=== PATIENT | female | born 1990 | race Caucasian/White ===

== ENCOUNTER → 2018-09-22 | Outpatient (CLI) | payer OTHER, MEDICAID ==
[~2018-09-22] MED LIST: ONETAB3 PO; VICO5TA PO
[2018-09-22 18:12] LABS: FREE T4 1.01 NG/DL (0.76-1.46); THYROID STIMULATING HORMONE 1.22 uIU/ML (0.358-3.740)
[2018-09-22 18:15] LABS: LUTEINIZING HORMONE 6.2 mIU/mL; PROGESTERONE 0.38 NG/ML; PROLACTIN 8.8 NG/ML
[2018-09-22 18:16] LABS: FOLLICLE STIMULATING HORMONE 5.4 mIU/mL
[2018-09-22 20:50] LABS: CHLAMYDIA DNA AMPLIFICATION NEGATIVE (NEGATIVE); GC DNA AMPLIFICATION NEGATIVE (NEGATIVE)
== END ==
LOC: M SMT 13:51
PROVIDERS: ATTEND Specialist
DX: N93.8 Other specified abnormal uterine and vaginal bleeding (principal)

== ENCOUNTER 2022-05-15 13:09 | Emergency (ER) | payer MEDICAID, OTHER ==
[~2022-05-15] VITALS: Ht 180.3 cm; Wt 102.7 kg
[2022-05-15] MEDS ORDERED: PRENTAB53 PO (13:17)
[2022-05-15 14:25] LABS: BASO % 0.3 % (0.0-1.0); EOS # 0.1 10^3/uL (0.0-0.5); EOS % 1.2 % (0.0-3.0); HEMATOCRIT 39.9 % (36.0-47.0); HEMOGLOBIN 13.2 g/dl (12.0-15.5); LYMPH # 3.7 10^3/uL (1.5-5.0); LYMPH % 37.7 % (24.0-44.0); MEAN CORPUSCULAR HEMOGLOBIN 29.4 pg (27.0-33.0); MEAN CORPUSCULAR HGB CONC 33.1 g/dl (32.0-36.5); MEAN CORPUSCULAR VOLUME 88.9 fl (80.0-96.0); MONO # 0.6 10^3/uL (0.0-0.8); MONO % 6.4 % (2.0-8.0); NEUTROPHILS # 5.2 10^3/uL (1.5-8.5); NEUTROPHILS % 54.2 % (36.0-66.0); RED BLOOD COUNT 4.49 10^6/uL (4.00-5.40); WHITE BLOOD COUNT 9.7 10^3/uL (4.0-10.0)
[2022-05-15] MEDS ORDERED: METR-265 PO (17:30)
[2022-05-15] MEDS ORDERED: metroNIDAZOLE (FLAGYL) 500MG TABLET PO ONE (17:35)
[2022-05-15 17:41] VITALS: BP 115/83
[2022-05-15 17:44] LABS: GC DNA AMPLIFICATION NEGATIVE (NEGATIVE)
== END 2022-05-15 17:54 | disposition home or self-care (01) ==
LOC: M ED 13:09
DX: O20.8 Other hemorrhage in early pregnancy (principal); A59.8 Trichomoniasis of other sites; Z3A.01 Less than 8 weeks gestation of pregnancy

== ENCOUNTER 2022-05-16 20:11 | Emergency (ER) | payer MEDICAID, OTHER ==
[~2022-05-16] VITALS: Ht 180.3 cm; Wt 107.0 kg
[~2022-05-16 20:11] MED LIST changes: +METR-265 PO; +PRENTAB53 PO
[2022-05-16 20:12] VITALS: BP 141/71
[2022-05-16 21:05] LABS: BASO # 0.1 10^3/uL (0.0-0.2); BASO % 0.3 % (0.0-1.0); EOS # 0.3 10^3/uL (0.0-0.5); EOS % 2.1 % (0.0-3.0); HEMATOCRIT 41.2 % (36.0-47.0); HEMOGLOBIN 13.4 g/dl (12.0-15.5); MEAN CORPUSCULAR HGB CONC 32.5 g/dl (32.0-36.5); MEAN CORPUSCULAR VOLUME 89.2 fl (80.0-96.0); MONO % 6.8 % (2.0-8.0); NEUTROPHILS # 8.6 10^3/uL (1.5-8.5); NEUTROPHILS % 57.3 % (36.0-66.0); PLATELET COUNT, AUTOMATED 315 10^3/uL (150-450); RED BLOOD COUNT 4.62 10^6/uL (4.00-5.40); WHITE BLOOD COUNT 15.1 10^3/uL (4.0-10.0)
[2022-05-16 21:53] LABS: BLOOD UREA NITROGEN 13 MG/DL (7-18); CARBON DIOXIDE LEVEL 27 MEQ/L (21-32); CHLORIDE LEVEL 106 MEQ/L (98-107); CREATININE FOR GFR 0.63 MG/DL (0.55-1.30); GLOMERULAR FILTRATION RATE > 60.0 (>60); GLUCOSE, FASTING 92 MG/DL (70-100); HCG, SERUM QUANTITATIVE 3781 MIU/ML; POTASSIUM SERUM 4.2 MEQ/L (3.5-5.1); SODIUM LEVEL 139 MEQ/L (136-145)
== END 2022-05-16 22:39 | disposition left against medical advice (07) ==
LOC: M ED 20:11
DX: Z53.29 Procedure and treatment not carried out because of patient's decision for other reasons (principal)

== ENCOUNTER → 2022-08-31 | Outpatient (CLI) | payer OTHER ==
[2022-08-31 13:50] LABS: HEMATOCRIT 38.4 % (36.0-47.0); HEMOGLOBIN 12.2 g/dl (12.0-15.5); MEAN CORPUSCULAR HEMOGLOBIN 29.5 pg (27.0-33.0); MEAN CORPUSCULAR HGB CONC 31.8 g/dl (32.0-36.5); MEAN CORPUSCULAR VOLUME 92.8 fl (80.0-96.0); PLATELET COUNT, AUTOMATED 287 10^3/uL (150-450); RED BLOOD COUNT 4.14 10^6/uL (4.00-5.40); WHITE BLOOD COUNT 9.2 10^3/uL (4.0-10.0)
[2022-08-31 13:58] LABS: ALBUMIN 3.7 G/DL (3.2-5.2); BLOOD UREA NITROGEN 14 MG/DL (9-23); CALCIUM LEVEL 8.8 MG/DL (8.5-10.1); CARBON DIOXIDE LEVEL 30 MMOL/L (20-31); CHLORIDE LEVEL 103 MMOL/L (98-107); CREATININE FOR GFR 0.54 MG/DL (0.55-1.30); FREE T4 0.82 NG/DL (0.89-1.76); GLOMERULAR FILTRATION RATE > 60.0 (>60); GLUCOSE, FASTING 86 MG/DL (60-100); PHOSPHORUS LEVEL 4.1 MG/DL (2.5-4.9); POTASSIUM SERUM 4.7 MMOL/L (3.5-5.1); SODIUM LEVEL 138 MMOL/L (136-145)
[2022-08-31 13:59] LABS: THYROID STIMULATING HORMONE 1.307 uIU/ML (0.55-4.78)
[2022-08-31 14:00] LABS: TOTAL 25(OH) VITAMIN D 17.3 NG/ML (20.0-100.0)
[2022-08-31 21:32] LABS: HEPATITIS B SURFACE ANTIGEN NEGATIVE (NEGATIVE)
[2022-08-31 21:54] LABS: HEPATITIS B CORE ANTIBODY IGM NEGATIVE (NEGATIVE)
[2022-08-31 22:18] LABS: HEPATITIS C VIRUS ABY INDEX > 11.0 INDEX (<0.8)
[2022-09-01 18:07] LABS: HEPATITIS C QUANTITATION HCV Not Detected IU/mL (.)
== END ==
LOC: M PLALAB 11:17
PROVIDERS: ATTEND Physician Assistant
DX: Z02.2 Encounter for examination for admission to residential institution (principal)

== ENCOUNTER 2023-05-02 13:04 | Emergency (ER) | payer OTHER ==
[~2023-05-02] VITALS: Ht 177.8 cm; Wt 139.7 kg
[2023-05-02 16:13] LABS: BASO % 0.3 % (0.0-1.0); EOS # 0.2 10^3/uL (0.0-0.5); EOS % 2.2 % (0.0-3.0); HEMATOCRIT 39.5 % (36.0-47.0); HEMOGLOBIN 12.5 g/dl (12.0-15.5); LYMPH # 3.7 10^3/uL (1.5-5.0); LYMPH % 40.1 % (24.0-44.0); MEAN CORPUSCULAR HEMOGLOBIN 27.4 pg (27.0-33.0); MEAN CORPUSCULAR HGB CONC 31.6 g/dl (32.0-36.5); MEAN CORPUSCULAR VOLUME 86.4 fl (80.0-96.0); MONO # 0.8 10^3/uL (0.0-0.8); MONO % 8.3 % (2.0-8.0); NEUTROPHILS # 4.5 10^3/uL (1.5-8.5); NEUTROPHILS % 48.9 % (36.0-66.0); PLATELET COUNT, AUTOMATED 250 10^3/uL (150-450); RED BLOOD COUNT 4.57 10^6/uL (4.00-5.40); WHITE BLOOD COUNT 9.2 10^3/uL (4.0-10.0)
[2023-05-02 16:38] LABS: BLOOD UREA NITROGEN 10 MG/DL (9-23); CALCIUM LEVEL 8.6 MG/DL (8.5-10.1); CARBON DIOXIDE LEVEL 31 MMOL/L (20-31); CHLORIDE LEVEL 105 MMOL/L (98-107); CREATININE FOR GFR 0.64 MG/DL (0.55-1.30); GLOMERULAR FILTRATION RATE > 60.0 (>60); GLUCOSE, FASTING 90 MG/DL (60-100); POTASSIUM SERUM 4.2 MMOL/L (3.5-5.1); SODIUM LEVEL 138 MMOL/L (136-145)
[2023-05-02 17:46] LABS: ALBUMIN 3.3 G/DL (3.2-5.2); ALKALINE PHOSPHATASE 97 U/L (46-116); ALT/SGPT 52 U/L (7.0-40); AST/SGOT 29 U/L (<34); BILIRUBIN,DIRECT < 0.1 MG/DL (<0.4); BILIRUBIN,TOTAL 0.2 MG/DL (0.3-1.2); TOTAL PROTEIN 7.2 G/DL (5.7-8.2)
[2023-05-02 17:49] LABS: APPEARANCE, URINE CLOUDY (CLEAR); BACTERIA, URINE AUTO NEGATIVE (NEGATIVE); BILIRUBIN, URINE AUTO NEGATIVE (NEGATIVE); BLOOD, URINE BLOOD NEGATIVE (NEGATIVE); COLOR, URINE YELLOW (YELLOW); GLUCOSE, URINE (UA) AUTO NEGATIVE (NEGATIVE); KETONE, URINE AUTO NEGATIVE (NEGATIVE); LEUKOCYTE ESTERASE, URINE AUTO TRACE (NEGATIVE); NITRITE, URINE AUTO NEGATIVE (NEGATIVE); PROTEIN, URINE AUTO NEGATIVE (NEGATIVE); RBC, URINE AUTO 0 /HPF (0-3); SPECIFIC GRAVITY URINE AUTO 1.008 (1.002-1.035); SQUAMOUS EPITHELIAL CELL UR AU 20 /HPF (0-6); UROBILINOGEN, URINE AUTO 0.2 mg/dL (0.0-2.0); WBC, URINE AUTO 1 /HPF (0-3)
[2023-05-02 17:53] LABS: HCG, SERUM QUALITATIVE NEGATIVE (NEGATIVE)
[2023-05-02 19:30] VITALS: BP 136/63; TEMP 98.8; O2SAT 98
[2023-05-02 19:42] LABS: FREE T4 0.73 NG/DL (0.89-1.76)
== END 2023-05-02 19:31 | disposition home or self-care (01) ==
LOC: M ED 13:04
DX: R60.9 Edema, unspecified (principal); F17.200 Nicotine dependence, unspecified, uncomplicated; Z79.899 Other long term (current) drug therapy

== ENCOUNTER → 2024-05-10 | Outpatient (CLI) | payer OTHER | LOC: M EKG 13:17 | PROVIDERS: ATTEND Nurse Practitioner Family | DX: G89.4 Chronic pain syndrome (principal) ==

== ENCOUNTER → 2024-05-14 | Outpatient (CLI) | payer OTHER | LOC: M EKG 15:24 | PROVIDERS: ATTEND Nurse Practitioner Family | DX: Z04.1 Encounter for examination and observation following transport accident (principal); V49.40XS Driver injured in collision with unspecified motor vehicles in traffic accident, sequela ==

== ENCOUNTER → 2024-05-18 | Outpatient (CLI) | payer OTHER | LOC: M SLEEP HO 15:07 | PROVIDERS: ATTEND Nurse Practitioner Family | DX: T14.90XS Injury, unspecified, sequela (principal); V49.40XS Driver injured in collision with unspecified motor vehicles in traffic accident, sequela; R06.83 Snoring ==